=== PATIENT | female | born 1965 | race Caucasian/White ===

== ENCOUNTER → 2017-05-12 | Outpatient (CLI) | payer BC ==
[~2017-05-12] MED LIST: ATOR-22 PO; CLN200 PO; CYAN100020 PO; ESTRACE CREAM PV; LEVO137T3 PO; LSN20 PO; PANT40TA PO
--- NOTE | 2017-05-12 21:03 | DIAGNOSTIC IMAGING REPORT ---
MRI OF THE RIGHT ANKLE AND HINDFOOT WITHOUT CONTRAST CLINICAL HISTORY: Right hindfoot and ankle pain. COMPARISON STUDY: No previous studies for comparison. TECHNIQUE: Utilizing a 1.5 Cordelia magnet, multiplanar, multi echo imaging of the right ankle and hindfoot was performed without intravenous contrast. FINDINGS: There is mild plantar calcaneal spurring with thickening of the proximal plantar fascia. There is no significant adjacent edema. There is slight increased intermediate signal within the proximal aspect of the plantar fascia. The Achilles tendon is intact. There is minimal edema anterior to the mid to distal aspect of the Achilles. Talar dome is intact. No mass or fluid collection is shown within the right ankle, midfoot or hindfoot. There is no marrow edema. The deltoid ligament is slightly irregular but likely intact. The anterior talofibular ligament is intact. Subtalar joint is unremarkable. There may be an accessory navicular. There is slight irregularity of the distal posterior tibial tendon. Tendinopathy with be difficult to exclude. This likely inserts on the accessory navicular. The flexor and extensor tendons are intact. IMPRESSION: 1. Thickening of the proximal plantar fascia with intermediate signal intensity and plantar calcaneal spurring. The findings may reflect mild plantar fasciitis. 2. No marrow edema. No fracture within the right ankle or hindfoot. 3. 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 Possible tendinopathy of the distal posterior tibial tendon at its insertion. 4. Minimal edema anterior to the Achilles tendon. Normal appearance of the Achilles tendon. Electronically signed by: Gualberto Christy M.D. 05/12/2017 9:02 PM Dictated Date/Time: 05/12/2017 8:31 PM
== END | disposition home or self-care (01) ==
LOC: C.MRI 19:04
PROVIDERS: ATTEND Podiatrist Foot & Ankle Surgery
DX: M72.2 Plantar fascial fibromatosis (principal)

== ENCOUNTER → 2017-07-28 | Outpatient (CLI) | payer BC ==
[2017-07-28 18:52] LABS: BASO % 0.1 %; BASO ABS # 0.01 K/uL (0-0.2); COMPLETE YES; EOS % 0.8 %; HEMATOCRIT 38.2 % (37-47); IG% 0.3 %; LYMPH ABS # 2.73 K/uL (1.2-3.4); MEAN CELL VOLUME 92.7 fL (80-100); MEAN CORPUSCULAR HEMOGLOBIN 31.6 pg (25-34); MEAN PLATELET VOLUME 10.8 fL (7.4-10.4); MONO % 7.4 %; NEUT % 56.4 %; PLATELET COUNT 239 K/uL (130-400); RED BLOOD COUNT 4.12 M/uL (4.2-5.4)
[2017-07-28 19:14] LABS: C-REACTIVE PROTEIN < 0.29 mg/dl (0-0.29); RHEUMATOID FACTOR < 10.0 U/mL (0-15)
[2017-07-31 20:22] LABS: HLA-B27** TC 528X NEGATIVE (NEGATIVE)
--- NOTE | 2017-08-01 07:25 | CODING QUERY NO DIAGNOSIS ---
TREATMENT RENDERED WITHOUT A DIAGNOSIS : 1965 To promote full compliance with coding requirements relating to patient care, physician participation is requested in all cases of art manager uncertainty. Please assist us with providing a diagnosis/symptom for the test(s) below: A diagnosis/symptom was not documented on your Order. A valid diagnosis/symptom is required to bill all insurances. Please remember that we are unable to code a diagnosis of rule out, probable, possible, questionable, or suspected. Tests that require a diagnosis: DOS: 07/28/17 * CBC WITH AUTO DIFFER DIAGNOSIS: * C-REACTIVE PROTEIN DIAGNOSIS: * RHEUMATOID FACTOR DIAGNOSIS: * ERYTHROCYTE SEDIMENT DIAGNOSIS: Provider Signature: Date: Thank you Diane [facility] Information Management Once completed, please kindly fax back to [phone] For questions please call [phone]
== END | disposition home or self-care (01) ==
LOC: C.LAB 17:07
PROVIDERS: ATTEND Podiatrist Foot & Ankle Surgery
DX: R26.2 Difficulty in walking, not elsewhere classified (principal); M79.672 Pain in left foot; M79.671 Pain in right foot; M72.2 Plantar fascial fibromatosis

== ENCOUNTER 2017-08-12 06:32 | Day surgery (SDC) | payer BC ==
[2017-08-01 15:12] VITALS: BMI 31.0
--- NOTE | 2017-08-08 11:30 | HISTORY & PHYSICAL EXAMINATION ---
DATE OF ADMISSION: 08/12/2017 HISTORY OF PRESENT ILLNESS: A 52-year-old female presents for evaluation of flatfoot deformity requesting surgical intervention. She was initially treated in December 2016 after being referred by Dr. Willams. She indicates that the problem is located in the right foot. Pain is described as aching pain and soreness. Severity of the condition is graded as 7 on a 10 point scale. Associated signs and symptoms include pain. She indicates she has not been having pain and problems with her for for about 2 years now. Past treatment has improved however not resolved the condition. Past treatment included x-rays, MRI, EMG, NCV, oral medications, steroid injections, physical therapy, insoles, custom molded orthotics, ice, heat, topicals, Biofreeze, AFO. She has had conservative treatment by myself and Dr. Willams and [facility] physician and business analytics specialist for a long period of time; however, despite this she is requesting surgical intervention due to the nature and severity of deformity that is present. PAST SURGICAL HISTORY: Shoulder surgery in 2014, finger surgery in 2012. PAST MEDICAL HISTORY: Hyperlipidemia, hypertension, gallbladder disease, thyroid condition and back problems. MEDICATIONS: Include Tylenol, lisinopril, Avastatin, levothyroxine, Protonix, sulindac. ALLERGIES: ORAL DEXAMETHASONE. FAMILY HISTORY: Back problems, cancer, cardiovascular disease, hypertension, high cholesterol and stroke. SOCIAL HISTORY: The patient denies smoking, alcohol use, illicit drug use, and STDs. REVIEW OF SYSTEMS: Unremarkable except chief complaint. PHYSICAL EXAMINATION: VITAL SIGNS: Height 5 feet 3, weight 179 pounds, body mass index 32. CONSTITUTIONAL: The patient appears well-developed and nourished with good attention to body grooming and habitus. HEAD AND FACE: Head is normocephalic and atraumatic without any gross head, face, or neck masses. EYES: Conjunctival and pupillary reaction to light and accommodation are normal. EARS, NOSE, MOUTH, AND THROAT: Unremarkable. NECK: Neck is supple. Trachea is midline without any adenopathy or crepitance palpable. CARDIOVASCULAR: Normal S1, S2 without murmur, gallops, rubs, or clicks noted. Cardiovascular exam is normal. RESPIRATORY: Chest is symmetric. No scars are visible. No port or pacemaker. LUNGS: Clear to auscultation bilaterally and equal. GASTROINTESTINAL: Abdominal organs, bladder, and kidneys show no abnormalities, masses, tenderness, or rigidity. LYMPHATIC: No popliteal, inguinal, or supraclavicular lymphadenopathy noted. LOWER EXTREMITY: DP palpable. PT palpable. Swelling is noted medial aspect of the left foot and posterior medial aspect of the ankle shows evidence of edema +3/6. DERMATOLOGIC: No rash, subcutaneous nodules, lesions, or ulcers are observed. NEUROLOGIC: Epicritic sensations over the cervical cutaneous nerve diminished to the tibial nerve, L4-S3 is absent. Decreased sensation is noted directly over the ankle. Swelling on the channel opener on exam is noted. Deep tendon reflexes are normal. MUSCULOSKELETAL: Muscle tone is normal. Muscle strength 5/5 all groups tested. Heel shows moderate pain over the plantar medial aspect of the calcaneus. Decreased joint range of motion with knee flexed and extended. Pain precludes reliable exam over the posterior tibial tendon. Gait analysis performed which shows excessive pronation. Posterior tibial tendon reveals swelling and pain. Unable to perform heel rise bilaterally. LABORATORY DATA: Nerve conduction study on 12/24/2016 was unremarkable. MRI of the right ankle on 05/12/2007 shows thickening in the proximal fashion with intermediate signal intensity and plantar calcaneal spurring. Findings reflect mild plantar fasciitis, no marrow edema, no fracture of the right ankle or hindfoot. Suspected os navicular, possible tendonopathy of the distal posterior aspect of tendon at its insertion, minimal at the anterior tendon, normal appearance of the Achilles tendon. IMPRESSION: 1. Heel spur syndrome, right greater than left. 2. Plantar fasciitis, right greater than left. 3. Equinus bilaterally. 4. Posterior tibial tenderness bilaterally, per the MRI suspected navicular, possible tendinopathy, posterior tibial tenderness insertion on the right, os tibiale externum, neuritis, sciatic nerve left 4 and S3 bilateral. EMG and NCV is negative for radiculopathy. 5. Rule out tarsal tunnel secondary to edema from tendonitis versus localized entrapment. Absent per EMG and NCV. 6. Difficulty walking. 7. Pain in lower extremities. PLAN: I explained at length the mechanics of the anatomy posterior tibial tendon and informed of the possibility acquired flatfoot deformity that can develop the condition progresses. Discussed conservative treatment of tendonitis including rice principles, accommodative shoes, accommodative pads, nonsteroidal medications, custom mold orthotics, ankle foot orthotics, immobilization in acute cases, conservative management of tendonitis will alleviate symptoms but the patient really needs custom molded orthotics, ankle foot orthosis, she is aware of this. She was dispensed a CAM walker the day of the surgery. Due to the nature and severity of her abnormality with continued pain and multiple joint pain, we also ordered WIL, CBC with diff, C-reactive protein, ESR, HLA-B27, rheumatoid factor. At this time, she would like to proceed with surgical intervention due to continued pain and discomfort. Surgical procedures to be performed: 1. Excision of os tibiale externum, Kitner advancement on the right. 2. Repair of posterior tibial tendon with graft right leg. 3. Possible neuroplasty posterior tibial nerve medial calcaneal branch of the right leg. 4. Open heel spur resection with plantar fasciotomy, right. This will be performed under general anesthesia as an outpatient at the hospital. We discussed risks from the possible grafts. All questions were answered. Procedure, risks and complications were fully reviewed with the patient. Consent form and foot diagram and illustration reviewed in their entirety and the patient's questions were answered. Complications were discussed in detail with the patient including pain, infection, swelling that may or may not be excessive, pins and needles feeling, numbness, metatarsalgia, excessive bleeding, delay or nonhealing of bone, delay or nonhealing of skin, enlarged scar, failure of the procedure, reoccurrence or worsening of condition which may or may not require further surgery, adverse reaction to anesthesia, allergic reaction to suture or other implant material, loss of toe, foot, or leg, flail toe, stiff toe, short toe, elevated toe, transfer lesion or callus, peripheral neurovascular complications such as phlebitis, damage to nerves or vascular structures, significant chronic pain, chronic nerve pain or damage, and general medical complications. The patient will be required to be nonweightbearing in a cast for a minimum of 6-8 weeks followed by weightbearing cast immobilization for 2-4 weeks and not return to dress shoes for 10-16 weeks depending on the postop edema. The patient is aware this is an elective type procedure and I recommend a second opinion. The patient stated they understood. Consent form was signed with a copy of the foot diagram issued to the patient. Verbal and written postoperative instructions were given. The patient will return to the office for postop check or sooner if medically necessary. Instructed to keep dressing clean, dry and intact until seen at the office. At time of the preoperative appointment, prescriptions for Keflex and Percocet were dispensed. [facility]ENTER[facility]
[~2017-08-12] VITALS: Ht 160 cm; Wt 81.4 kg
[~2017-08-12 06:32] MED LIST changes: +CEFAZOLIN 2000 MG/60 ML D5W IV SCH; +LACTATED RINGER'S 1000ML 1,000 ML IV SCH; +ROPIVACAINE 0.5% 5 MG/ML 30 ML VIAL ONE; +SODIUM CHLORIDE 0.9% 1000ML 1,000 ML IV SCH
[2017-08-12] MEDS ORDERED: SODIUM CHLORIDE 0.9% 1000ML 1,000 ML IV SCH ×2 (07:00)
--- NOTE | 2017-08-12 07:02 | History & Physical Bridge Note ---
H&P Re-Evaluation Bridge Note: I have examined the patient, reviewed the History & Physical and in the interval since the performance of the History & Physical I have noted the following changes of clinical significance: No changes noted
[2017-08-12 07:07] VITALS: BP 156/88; PULSE 70; TEMP 36.5; O2SAT 98; Ht 160 cm; Wt 81.4 kg
[2017-08-12 07:20] LABS: BASO % 0.3 %; BASO ABS # 0.02 K/uL (0-0.2); COMPLETE YES; EOS % 1.6 %; HEMATOCRIT 37.8 % (37-47); IG% 0.2 %; LYMPH % 33.2 %; LYMPH ABS # 2.08 K/uL (1.2-3.4); MEAN CELL VOLUME 90.4 fL (80-100); MEAN CORPUSCULAR HEMOGLOBIN 31.8 pg (25-34); MEAN CORPUSCULAR HGB CONC 35.2 g/dl (32-36); MONO % 7.3 %; NEUT % 57.4 %; PLATELET COUNT 214 K/uL (130-400); RED BLOOD COUNT 4.18 M/uL (4.2-5.4); WHITE BLOOD COUNT 6.27 K/uL (4.8-10.8)
[2017-08-12 07:45] LABS: C-REACTIVE PROTEIN < 0.29 mg/dl (0-0.29); RHEUMATOID FACTOR < 10.0 U/mL (0-15)
[2017-08-12] MEDS ORDERED: PROPOFOL IV EMULSION 10 MG/ML 20 ML VIAL IV ONE (07:49)
[2017-08-12] MEDS ORDERED: LIDOCAINE HCL 2% 2 ML VIAL (20MG/ML) ONE (07:49)
[2017-08-12] MEDS ORDERED: ONDANSETRON INJ 2 MG/ML 2 ML VIAL ONE (07:49)
[2017-08-12] MEDS ORDERED: MIDAZOLAM HCL 1 MG/ML 2ML VIAL ONE (07:49)
[2017-08-12] MEDS ORDERED: FENTANYL CITRATE INJ 50 MCG/1 ML 2 ML VIAL ONE (07:49)
[2017-08-12] MEDS ORDERED: DEXAMETHASONE SOD INJ 4 MG/ML VIAL ONE (07:49)
[2017-08-12 07:50] LABS: BUN/CREATININE RATIO 21.1 (10-20); CALCIUM 9.5 mg/dl (8.5-10.1); CREATININE 0.75 mg/dl (0.60-1.20); POTASSIUM 3.7 mmol/L (3.5-5.1)
[2017-08-12] MEDS ORDERED: SCOPOLAMINE 1.5 MG TDSY TD ONE ×2 (08:29→08:30)
[2017-08-12] MEDS ORDERED: NALOXONE HCL 0.4 MG/1 ML VIAL/CARP IV PRN (08:30)
[2017-08-12] MEDS ORDERED: PHENYLEPHRINE 100MCG/ML 5ML SYR IV PRN (08:30)
[2017-08-12] MEDS ORDERED: EpHEDrine SULFATE INJ 50 MG/ML AMP IV PRN (08:30)
[2017-08-12] MEDS ORDERED: HYDROmorphone INJ 2 MG/ML SYR/VIAL IV PRN (08:30)
[2017-08-12] MEDS ORDERED: ATROPINE SULFATE 0.1 MG/ML 5ML SYR IV PRN (08:30)
[2017-08-12] MEDS ORDERED: MEPERIDINE HCL 25 MG/ML CARP IV PRN (08:30)
[2017-08-12] MEDS ORDERED: FLUMAZENIL 0.1 MG/1 ML 10 ML VIAL IV PRN (08:30)
[2017-08-12] MEDS ORDERED: ONDANSETRON INJ 2 MG/ML 2 ML VIAL IV PRN (08:30)
[2017-08-12] MEDS ORDERED: LABETALOL HCL IV 5 MG/ML 20ML IV PRN (08:30)
[2017-08-12] MEDS ORDERED: RANITIDINE HCL 25 MG/ML INJ ONE (08:39)
[2017-08-12] MEDS ORDERED: SODIUM CHLORIDE 0.9% INJ 10 ML VIAL ONE (09:12)
[2017-08-12] MEDS ORDERED: EpHEDrine SULFATE INJ 50 MG/ML AMP ONE (09:12)
[2017-08-12] MEDS: FENTANYL CITRATE INJ 50 MCG/1 ML 2 ML VIAL IV PRN ×2 (11:01→11:08)
--- NOTE | 2017-08-12 11:11 | DIAGNOSTIC IMAGING REPORT ---
R FOOT 2 VIEWS HISTORY: 52 years-old Female RT FOOT right heel spur removal. COMPARISON: Right foot MRI 05/12/2017 TECHNIQUE: 2 spot fluoroscopic images of the right foot were obtained utilizing 6.0 seconds fluoroscopy time FINDINGS: Moderate enthesophyte of the plantar surface calcaneus noted on the initial image with overlying metallic density tool. There is subsequent removal of the enthesophyte on the second image. Mild enthesophyte of the Achilles calcaneus also noted. IMPRESSION: Fluoroscopic assistance as above. Please see procedure report for further details. The above report was generated using voice recognition software. It may contain grammatical, syntax or spelling errors. Electronically signed by: Oli Craven M.D. 08/12/2017 11:10 AM Dictated Date/Time: 08/12/2017 11:08 AM
[2017-08-12 11:32] VITALS: BP 133/68; PULSE 85; TEMP 36.6; O2SAT 96
--- NOTE | 2017-08-12 11:50 | DIAGNOSTIC IMAGING REPORT ---
R FOOT MIN 3 VIEWS ROUTINE CLINICAL HISTORY: postop COMPARISON STUDY: Right foot 08/12/2017. FINDINGS: Overlying bandage obscures fine bony detail. Mild soft tissue swelling and gas within the hindfoot. Patient is status post near complete resection of the plantar heel spur. IMPRESSION: Status post near complete resection of the plantar heel spur. Electronically signed by: Bandar Glover M.D. 08/12/2017 11:49 AM Dictated Date/Time: 08/12/2017 11:48 AM
--- NOTE | 2017-08-12 11:51 | Anesthesiology Progress Note ---
Anesthesia Post Op Note Date & Time Aug 12, 2017 at 11:51 Vital Signs Pain Intensity: 2 Vital Signs Past 12 Hours Date Time Temp Pulse Resp B/P (MAP) Pulse Ox O2 Delivery O2 Flow Rate FiO2 08/12/17 11:20 36 84 16 120/72 97 Nasal Cannula 2 08/12/17 11:10 36 82 16 129/66 98 Nasal Cannula 2 08/12/17 11:00 82 16 130/72 94 Room Air 08/12/17 10:50 82 16 134/62 99 Oxymask 10 08/12/17 10:40 87 16 136/64 99 Oxymask 10 08/12/17 10:32 36.7 86 16 129/61 99 Oxymask 10 08/12/17 07:07 36.5 70 18 156/88 (110) 98 Room Air Notes Mental Status: alert / awake / arousable, participated in evaluation Pt Amnestic to Procedure: Yes Nausea / Vomiting: adequately controlled Pain: adequately controlled Airway Patency, RR, SpO2: stable & adequate BP & HR: stable & adequate Hydration State: stable & adequate Anesthetic Complications: no major complications apparent
[2017-08-12 12:02] VITALS: BP 130/68; PULSE 81; TEMP 36.6; O2SAT 97
--- NOTE | 2017-08-12 12:26 | OPERATIVE REPORT ---
DATE OF OPERATION: 08/12/2017 PREOPERATIVE DIAGNOSES: 1. Posterior tibial tendinitis, right. 2. Tibia externum, right. 3. 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 4. Pain. 5. Difficulty walking. POSTOPERATIVE DIAGNOSES: Same. PROCEDURES: 1. Excision of os tibiale externum right. 2. Kitner advancement right. 3. Repair posterior tibial tendon right. 4. Reconstruction posterior tibial tendon. 5. Neuroplasty posterior tibial nerve medial calcaneal branch right leg. 6. Partial excision calcaneus with open resection plantar calcaneus. 7. Plantar fasciotomy, right. SURGEON: Dr. Hernández. ANESTHESIA: General with proximal regional block by anesthesia. HEMOSTASIS: Pneumatic thigh tourniquet inflated to 350 mmHg for a total tourniquet time of 66 minutes. ESTIMATED BLOOD LOSS: Minimal. MATERIALS: 2-0, 3-0 Vicryl, 4-0 nylon, Arthrex decellularized graft 3 x 4, 0.5 mm, 4.5 corkscrew 14 mm from Arthrex with 2-0 FiberWire and 2-0 TigerWire. FINDINGS: Thinning of the tendon distal to the os tibiale externum. COMPLICATIONS: None. PROCEDURE: The patient was brought to the OR and placed on the OR table in supine position. Upon completion of general anesthesia and regional field block performed by anesthesia department, a well-padded tourniquet was applied to the right lower extremity. The extremity was scrubbed, prepped and draped in the usual aseptic fashion. Attention was directed to the plantar medial aspect of the right foot where an incision was drawn out over the calcaneus, also over the tarsal tunnel incision through the batsheva pedis was carefully drawn out down and distal to the posterior tibial tendon insertion. Dissection took place with care to preserve all neurovascular structures. The canal, the posterior tibial tendon nerve was released as well as the medial calcaneal branch of the posterior tibial nerve. Attention was then directed to the posterior tibial tendon that was resected out at the os tibiale externum, also an additional amount of bone was removed from the tibia. The posterior tibial tendon was found to be degraded and thinned with obvious degenerative changes distal to the os tibiale externum. The tendon was approximately half the size as it was more proximally distal to the os tibiale externum. A corkscrew was placed into the navicular in typical AO fashion. This was used to advance the posterior tibial tendon. Reconstruction was performed over the insertional site. More proximally where this was noted repair of the posterior tibial tendon occurred with the decellularized graft. This was tacked down with 2-0 Vicryl. The wound was copiously lavaged with normal saline. Attention was then directed to the plantar medial aspect of the heel where the large spur was identified. Using the C-arm this was resected in total. Additional plantar fasciotomy from medial to lateral was performed cutting the plantar fascia. The wound was copiously lavaged with normal saline. Closure began of deep structure tissues using 2-0 Vicryl. Superficial deep structures were closed using 3-0 Vicryl. Skin margins closed using 5-0 nylon in a box stitch technique and horizontal mattress fashion. Pneumatic ankle tourniquet was released with normal hyperemic cash to digits 1 through 5. The patient tolerated the procedure and anesthesia well. A dry sterile compressive dressing consisting of Adaptic, 4 x 4s, ABDs, Kerlix and an Jesus was applied. The patient was placed in a CAM walker. The patient tolerated the procedure and anesthesia well without complications, transferred to recovery room with vital signs stable and neurovascular status intact. I attest to the content of the Intraoperative Record and any orders documented therein. Any exception s are noted below.
--- NOTE | 2017-08-12 12:27 | Discharge Instructions ---
Discharge Instructions Date of Service Aug 12, 2017. Admission Reason for Admission: Right Foot Heel Spur Plantarfascitis, Flat Foot Discharge Discharge Diagnosis / Problem: same as above Discharge Goals Goal(s): Decrease discomfort Activity Recommendations Activity Limitations: as noted below Lifting Limitations: gradually increase as tolerated Exercise/Sports Limitations: none May Resume Sexual Activity: when tolerated Shower/Bathe: keep incision dry Driving or Machine Use: Patient is not able to drive until after released from cam walker Weightbearing Status: Right non-weightbearing Patient is to be in cam walker all the time . Current Hospital Diet Patient's current hospital diet: Discharge Diet Recommended Diet: Regular Diet Procedures Procedures Performed: Right Excision of Os Tibial Externum and Kidner Advancement; Right Leg Repair Posterior Tibial Tendon with Graft; Right Neuroplasty Posterior Tibial Nerve / Medial Calcaneal Branch; Open Heel Spur Resection with Plantar Fasciectomy Pending Studies Studies pending at discharge: no Medical Emergencies . Who to Call and When: Medical Emergencies: If at any time you feel your situation is an emergency, please call 911 immediately. . Non-Emergent Contact Non-Emergency issues call your: Primary Care Provider, Surgeon . "Provider Documentation" section prepared by Germaine Rebolledo. . VTE Core Measure Inpt VTE Proph given/why not?: Treatment not tolerated
[2017-08-12] MEDS ORDERED: NURSING VERBAL MED ORDER ONE (12:30)
[2017-08-12] MEDS ORDERED: OXYCODONE/ACETAMINOPHEN 7.5-325 TAB ONE (12:30)
[2017-08-12 12:40] VITALS: BP 136/68; PULSE 89; TEMP 36.8; O2SAT 96
[2017-08-12 13:10] VITALS: BP 126/68; PULSE 85; TEMP 36.6; O2SAT 94
[2017-08-14 22:17] LABS: HLA-B27** TC 528X NEGATIVE (NEGATIVE)
== END 2017-08-12 13:43 | disposition home or self-care (01) ==
LOC: C.ACU 06:32
PROVIDERS: ATTEND Podiatrist Foot & Ankle Surgery
DX: M76.821 Posterior tibial tendinitis, right leg (principal); G57.51 Tarsal tunnel syndrome, right lower limb; E78.5 Hyperlipidemia, unspecified; I10 Essential (primary) hypertension; E78.00 Pure hypercholesterolemia, unspecified; E03.9 Hypothyroidism, unspecified; K21.9 Gastro-esophageal reflux disease without esophagitis; E66.9 Obesity, unspecified; Z82.49 Family history of ischemic heart disease and other diseases of the circulatory system; Z82.3 Family history of stroke; Z68.32 Body mass index [BMI] 32.0-32.9, adult; Z90.49 Acquired absence of other specified parts of digestive tract